=== PATIENT | male | born 1950 ===

== ENCOUNTER → 2018-08-04 17:33 | Outpatient (REF) | payer MEDICARE, SELFPAY ==
[2018-08-04 19:40] LABS: Estimated Glomerular Filt Rate > 60.0 mL/min (>60)
== END ==
LOC: LAB 17:33
PROVIDERS: Family Provider Family Medicine Geriatric Medicine; PCP Family Medicine Geriatric Medicine; Visit Provider Family Medicine Geriatric Medicine
DX: Z01.812 Encounter for preprocedural laboratory examination (principal)
CPT/HCPCS: 36415; 82565

== ENCOUNTER → 2018-08-25 18:57 | Outpatient (REF) | payer MEDICARE, SELFPAY | LOC: LAB 18:57 | PROVIDERS: Family Provider Family Medicine Geriatric Medicine; PCP Family Medicine Geriatric Medicine; Visit Provider Family Medicine Geriatric Medicine | DX: N39.0 Urinary tract infection, site not specified (principal) | CPT/HCPCS: 87077; 87086; 87186 ==

== ENCOUNTER → 2020-05-13 12:13 | Outpatient (CLI) | payer MEDICARE, SELFPAY | PROVIDERS: Family Provider Family Medicine Geriatric Medicine; PCP Family Medicine Geriatric Medicine; Visit Provider Specialist | DX: N39.0 Urinary tract infection, site not specified (principal); N31.9 Neuromuscular dysfunction of bladder, unspecified; Z87.440 Personal history of urinary (tract) infections | CPT/HCPCS: 87086; 99214 ==